=== PATIENT | male | born 1955 | race Caucasian/White ===

== ENCOUNTER 2017-09-28 11:08 | Emergency (ER) | payer MEDICARE, OTHER ==
[~2017-09-28] VITALS: Ht 172.7 cm; Wt 88.7 kg
[~2017-09-28 11:08] MED LIST: ALBU18HF2 INH; BUDE10.2 INH; BUPR150T14 PO; CYCL10TA10 PO; DOCU-28 PO; DONE10TA6 PO; FLUO40CA PO; GABA-532 PO; LISI-600 PO; OXYC15TA88 PO; SIMV40TA PO; SPIIN INH; TEMA30CA5 PO
[2017-09-28] MEDS ORDERED: proparacaine 0.5% ophthalmic drops 15ml EACHEYE ONE (11:50)
[2017-09-28] MEDS ORDERED: benoxinate/fluorescein ophth drops 5ml bottle EACHEYE ONE (12:05)
[2017-09-28] MEDS ORDERED: benoxinate/fluorescein ophth drops 5ml bottle ONE ×2 (12:11→12:18)
[2017-09-28] MEDS ORDERED: TOBR5DRO2 RIGHTEYE (12:18)
[2017-09-28 12:37] VITALS: BP 112/72
== END 2017-09-28 12:25 | disposition home or self-care (01) ==
LOC: ER 11:08
DX: S05.00XA Injury of conjunctiva and corneal abrasion without foreign body, unspecified eye, initial encounter (principal); J44.9 Chronic obstructive pulmonary disease, unspecified; G89.29 Other chronic pain; Z88.8 Allergy status to other drugs, medicaments and biological substances; Z79.899 Other long term (current) drug therapy; X58.XXXA Exposure to other specified factors, initial encounter; Y93.89 Activity, other specified; Y92.89 Other specified places as the place of occurrence of the external cause; Y99.8 Other external cause status
CPT/HCPCS: 99283

== ENCOUNTER 2018-02-09 17:09 | Emergency (ER) | payer MEDICARE, OTHER ==
[~2018-02-09] VITALS: Ht 172.7 cm; Wt 71.2 kg
[~2018-02-09 17:09] MED LIST changes: +TOBR5DRO2 RIGHTEYE
[2018-02-09] MEDS ORDERED: normal saline 1000ML IV soln IVB ONE (17:25)
[2018-02-09 17:35] LABS: BASOPHILS % (AUTO) 0.3 % (0-1); EOSINOPHILS # (AUTO) 0.1 X10'3 (0-0.9); EOSINOPHILS % (AUTO) 1.2 % (0-6); HEMATOCRIT 50.2 % (42.0-52.0); HEMOGLOBIN 17.3 g/dl (14.0-17.9); LYMPHOCYTES # (AUTO) 1.4 X10'3 (1.1-4.8); LYMPHOCYTES % (AUTO) 13.1 % (21-51); MEAN CORPUSCULAR HEMOGLOBIN 30.2 PG (27.0-31.0); MEAN CORPUSCULAR HGB CONC 34.4 % (33.0-36.5); MEAN CORPUSCULAR VOLUME 87.8 FL (78-98); MEAN PLATELET VOLUME 9.1 FL (7.4-10.4); MONOCYTES # (AUTO) 0.5 X10'3 (0-0.9); MONOCYTES % (AUTO) 4.2 % (2-12); NEUTROPHILS # (AUTO) 8.9 X10'3 (1.8-7.7); NEUTROPHILS % (AUTO) 81.2 % (42-75); PLATELET COUNT 247 X10'3 (140-440); RED BLOOD COUNT 5.72 X10'6 (4.70-6.10); RED CELL DISTRIBUTION WIDTH 13.9 % (11.5-14.5); WHITE BLOOD COUNT 10.9 X10'3 (4.5-11.0)
[2018-02-09 17:45] LABS: PARTIAL THROMBOPLASTIN TIME 27 SECONDS (22-32); PROTHROMBIN TIME 10.3 SECONDS (9.0-12.0)
[2018-02-09 17:49] LABS: ALANINE AMINOTRANSFERASE 40 U/L (12-78); ALBUMIN 3.8 G/DL (3.4-5.0); ALKALINE PHOSPHATASE 113 IU/L (46-116); ANION GAP 8 (8-16); ASPARTATE AMINO TRANSFERASE 29 U/L (10-37); BILIRUBIN,TOTAL 0.3 MG/DL (0.1-1.0); BLOOD UREA NITROGEN 29 MG/DL (7-18); BUN/CREATININE RATIO 17.4 (5.4-32.0); CALCIUM 9.2 MG/DL (8.5-10.1); CHLORIDE 98 MMOL/L (99-107); CREATININE 1.67 MG/DL (0.60-1.10); GLUCOSE 143 MG/DL (70-104); POTASSIUM 5.2 MMOL/L (3.5-5.1); SODIUM 134 MMOL/L (135-145); TOTAL CARBON DIOXIDE 28.1 MMOL/L (24-32); TOTAL PROTEIN 7.8 G/DL (6.4-8.2); eGFR 42 ML/MIN
[2018-02-09 18:38] LABS: D-DIMER 0.49 MG/L FEU (0-0.50)
[2018-02-09] MEDS ORDERED: calcium chloride 100 MG/1 ML inj IV ONE (21:45)
[2018-02-09] MEDS ORDERED: sodium bicarbonate (0.9mEq/ml) 44.6 mEq/50ml syringe IV ONE (21:45)
[2018-02-09] MEDS ORDERED: furosemide 40mg/4ml inj IV ONE (21:45)
[2018-02-09] MEDS ORDERED: dextrose 50%-water 50ml dispensing syringe IV ONE (21:45)
[2018-02-09] MEDS ORDERED: insulin regular, human 10 units/0.1 ml syringe IV ONE (21:45)
[2018-02-09] MEDS ORDERED: sodium bicarbonate 1 MEQ/1 ml inj IV ONE (21:50)
[2018-02-09 22:13] VITALS: BP 130/57
== END 2018-02-09 22:17 | disposition home or self-care (01) ==
LOC: ER 17:10
DX: I24.9 Acute ischemic heart disease, unspecified (principal); I47.1 Supraventricular tachycardia; N28.9 Disorder of kidney and ureter, unspecified; E87.5 Hyperkalemia; I10 Essential (primary) hypertension; J44.1 Chronic obstructive pulmonary disease with (acute) exacerbation; E78.00 Pure hypercholesterolemia, unspecified; G89.29 Other chronic pain; Z88.6 Allergy status to analgesic agent; Z79.899 Other long term (current) drug therapy
CPT/HCPCS: 36415; 71045; 80053; 84439; 84443; 84484; 85025; 85379; 85610; 85730; 93005; 99285; J7030

== ENCOUNTER 2019-04-19 11:44 | Emergency (ER) | payer MEDICARE ==
[~2019-04-19] VITALS: Ht 172.7 cm; Wt 81.8 kg
[~2019-04-19 11:44] MED LIST changes: -DONE10TA6 PO; +DONE10TA7 PO
[2019-04-19] MEDS ORDERED: fentaNYL/PF 50MCG/1 ML 2ML syringe IV ONE (12:00)
--- NOTE | 2019-04-19 12:21 | NUR ---
pt to ct via wheelchair with manufacturer
--- NOTE | 2019-04-19 12:26 | NUR ---
Donis garcia in ED - 04/19/19 at 12[email or web address] PER [address] MIR PLACED PT ON LEFT SIDE WITH PEROXIDE IN HIS EAR
[2019-04-19 12:31] LABS: BASOPHILS % (AUTO) 0.4 % (0-1); EOSINOPHILS % (AUTO) 0.4 % (0-6); HEMATOCRIT 40.5 % (42.0-52.0); HEMOGLOBIN 13.9 g/dl (14.0-17.9); LYMPHOCYTES # (AUTO) 0.9 X10'3 (1.1-4.8); LYMPHOCYTES % (AUTO) 14.9 % (21-51); MEAN CORPUSCULAR HEMOGLOBIN 30.4 PG (27.0-31.0); MEAN CORPUSCULAR HGB CONC 34.3 g/dL (33.0-36.5); MEAN CORPUSCULAR VOLUME 88.7 FL (78-98); MEAN PLATELET VOLUME 8.1 FL (7.4-10.4); MONOCYTES # (AUTO) 0.4 X10'3 (0-0.9); MONOCYTES % (AUTO) 6.9 % (2-12); NEUTROPHILS # (AUTO) 4.6 X10'3 (1.8-7.7); NEUTROPHILS % (AUTO) 77.4 % (42-75); PLATELET COUNT 165 X10'3 (140-440); RED BLOOD COUNT 4.56 X10'6 (4.70-6.10); RED CELL DISTRIBUTION WIDTH 13.5 % (11.5-14.5)
[2019-04-19 12:56] LABS: ALANINE AMINOTRANSFERASE 27 U/L (12-78); ANION GAP 10 (8-16); ASPARTATE AMINO TRANSFERASE 17 U/L (10-37); BILIRUBIN,TOTAL 0.4 MG/DL (0.1-1.0); BLOOD UREA NITROGEN 18 MG/DL (7-18); BUN/CREATININE RATIO 15.1 (5.4-32.0); CALCIUM 7.6 MG/DL (8.5-10.1); CHLORIDE 106 MMOL/L (99-107); CREATININE 1.19 MG/DL (0.60-1.10); GLUCOSE 94 MG/DL (70-104); POTASSIUM 3.5 MMOL/L (3.5-5.1); SODIUM 138 MMOL/L (135-145); TOTAL CARBON DIOXIDE 22.4 MMOL/L (24-32); TOTAL PROTEIN 5.9 G/DL (6.4-8.2); eGFR 62 ML/MIN
[2019-04-19 13:01] LABS: ALKALINE PHOSPHATASE 76 IU/L (46-116)
[2019-04-19 13:41] VITALS: BP 107/62
[2019-04-19] MEDS ORDERED: HYDROcodone/acetaminophen 5mg/325mg tablet PO ONE (13:45)
== END 2019-04-19 14:01 | disposition home or self-care (01) ==
LOC: ER 11:45
DX: S00.81XA Abrasion of other part of head, initial encounter (principal); R55 Syncope and collapse; G89.29 Other chronic pain; M54.2 Cervicalgia; E78.00 Pure hypercholesterolemia, unspecified; I10 Essential (primary) hypertension; J43.9 Emphysema, unspecified; Z88.6 Allergy status to analgesic agent; Z79.899 Other long term (current) drug therapy; W18.39XA Other fall on same level, initial encounter; Y93.89 Activity, other specified; Y92.89 Other specified places as the place of occurrence of the external cause; Y99.8 Other external cause status
CPT/HCPCS: 36415; 70450; 71045; 72125; 80053; 84484; 85025; 93005; 96374; 99284; J3010

== ENCOUNTER 2019-07-28 16:39 | Emergency (ER) | payer MEDICARE ==
[~2019-07-28] VITALS: Ht 177.8 cm; Wt 84.0 kg
--- NOTE | 2019-07-28 18:19 | NUR ---
Greeted pt and he fell back to sleep.
[2019-07-28] MEDS ORDERED: BUPR1FIL7 SL (18:25)
[2019-07-28] MEDS ORDERED: METO-395 PO (18:26)
[2019-07-28 18:44] LABS: BASOPHILS % (AUTO) 0.4 % (0-1); EOSINOPHILS # (AUTO) 0.1 X10'3 (0-0.9); EOSINOPHILS % (AUTO) 0.8 % (0-6); HEMATOCRIT 45.2 % (42.0-52.0); HEMOGLOBIN 15.6 g/dl (14.0-17.9); LYMPHOCYTES # (AUTO) 1.1 X10'3 (1.1-4.8); MEAN CORPUSCULAR HEMOGLOBIN 30.3 PG (27.0-31.0); MEAN CORPUSCULAR HGB CONC 34.6 g/dL (33.0-36.5); MEAN CORPUSCULAR VOLUME 87.7 FL (78-98); MEAN PLATELET VOLUME 8.2 FL (7.4-10.4); MONOCYTES # (AUTO) 0.6 X10'3 (0-0.9); MONOCYTES % (AUTO) 7.3 % (2-12); NEUTROPHILS # (AUTO) 6.2 X10'3 (1.8-7.7); NEUTROPHILS % (AUTO) 77.5 % (42-75); PLATELET COUNT 213 X10'3 (140-440); RED BLOOD COUNT 5.16 X10'6 (4.70-6.10); RED CELL DISTRIBUTION WIDTH 14.1 % (11.5-14.5)
[2019-07-28 18:55] LABS: ALANINE AMINOTRANSFERASE 28 U/L (12-78); ALBUMIN 3.5 G/DL (3.4-5.0); ALKALINE PHOSPHATASE 115 IU/L (46-116); ANION GAP 3 (8-16); ASPARTATE AMINO TRANSFERASE 19 U/L (10-37); BILIRUBIN,TOTAL 0.3 MG/DL (0.1-1.0); BLOOD UREA NITROGEN 12 MG/DL (7-18); BUN/CREATININE RATIO 12.9 (5.4-32.0); CALCIUM 8.2 MG/DL (8.5-10.1); CHLORIDE 97 MMOL/L (99-107); CREATININE 0.93 MG/DL (0.60-1.10); GLUCOSE 121 MG/DL (70-104); POTASSIUM 4.2 MMOL/L (3.5-5.1); SODIUM 132 MMOL/L (135-145); TOTAL CARBON DIOXIDE 32.2 MMOL/L (24-32); TOTAL PROTEIN 7.1 G/DL (6.4-8.2); eGFR 82 ML/MIN
--- NOTE | 2019-07-28 19:51 | NUR ---
Pt states he was just up to the BR and so now he can't void.
[2019-07-28] MEDS ORDERED: predniSONE 20 mg tablet PO ONE (20:10)
[2019-07-28] MEDS ORDERED: ipratropium/albuterol 3ml nebule NEB ONE (20:10)
--- NOTE | 2019-07-28 20:33 | NUR ---
pt states his back is hurting, he may need a suboxone.
[2019-07-28] MEDS ORDERED: buprenorphine/naloxone 8MG-2MG SUBlingual film SL SCH (20:40)
[2019-07-28] MEDS ORDERED: AZIT-72 PO (20:45)
[2019-07-28] MEDS ORDERED: PRED20TA PO (20:45)
[2019-07-28 20:58] VITALS: BP 118/81
== END 2019-07-28 21:02 | disposition home or self-care (01) ==
LOC: ER 16:41
DX: J44.1 Chronic obstructive pulmonary disease with (acute) exacerbation (principal); E78.00 Pure hypercholesterolemia, unspecified; I10 Essential (primary) hypertension; J44.9 Chronic obstructive pulmonary disease, unspecified; G89.29 Other chronic pain; F10.99 Alcohol use, unspecified with unspecified alcohol-induced disorder; Z98.890 Other specified postprocedural states; Z88.6 Allergy status to analgesic agent; Z79.899 Other long term (current) drug therapy; Y90.9 Presence of alcohol in blood, level not specified
CPT/HCPCS: 36415; 71046; 80053; 83605; 84484; 85025; 87040; 93005; 94640; 99284; J7512; 94760

== ENCOUNTER 2019-08-01 05:10 | Emergency (ER) | payer MEDICARE ==
[~2019-08-01] VITALS: Ht 177.8 cm; Wt 84.0 kg
[~2019-08-01 05:10] MED LIST changes: +AZIT-72 PO; +BUPR1FIL7 SL; -CYCL10TA10 PO; -DOCU-28 PO; +METO-395 PO; -OXYC15TA88 PO; +PRED20TA PO; -TOBR5DRO2 RIGHTEYE
[2019-08-01 05:46] LABS: CLARITY,URINE CLEAR (Clear); COLOR,URINE YELLOW (Yellow); GLUCOSE, URINE NEGATIVE (Neg); KETONES,URINE TRACE mg/dl (Neg); LEUKOCYTE ESTERASE ,URINE NEGATIVE (Neg); NITRITES, URINE NEGATIVE (Neg); OCCULT BLOOD,URINE NEGATIVE (Neg); PROTEIN,URINE NEGATIVE (Neg); UROBILINOGEN,URINE 0.2 E.U/dL (0.2-1.0)
[2019-08-01 05:51] LABS: BASOPHILS # (AUTO) 0.1 X10'3 (0-0.2); BASOPHILS % (AUTO) 0.4 % (0-1); EOSINOPHILS % (AUTO) 0 % (0-6); HEMATOCRIT 43.3 % (42.0-52.0); HEMOGLOBIN 14.9 g/dl (14.0-17.9); LYMPHOCYTES # (AUTO) 0.9 X10'3 (1.1-4.8); LYMPHOCYTES % (AUTO) 7.9 % (21-51); MEAN CORPUSCULAR HEMOGLOBIN 30.1 PG (27.0-31.0); MEAN CORPUSCULAR HGB CONC 34.5 g/dL (33.0-36.5); MEAN CORPUSCULAR VOLUME 87.3 FL (78-98); MEAN PLATELET VOLUME 8.7 FL (7.4-10.4); MONOCYTES # (AUTO) 0.8 X10'3 (0-0.9); MONOCYTES % (AUTO) 7.1 % (2-12); NEUTROPHILS # (AUTO) 9.8 X10'3 (1.8-7.7); NEUTROPHILS % (AUTO) 84.6 % (42-75); PLATELET COUNT 210 X10'3 (140-440); RED BLOOD COUNT 4.96 X10'6 (4.70-6.10); RED CELL DISTRIBUTION WIDTH 14.6 % (11.5-14.5); WHITE BLOOD COUNT 11.6 X10'3 (4.5-11.0)
[2019-08-01 05:51] LABS: UA COLLECTION TYPE STRAIGHT CATH
[2019-08-01 06:09] LABS: PARTIAL THROMBOPLASTIN TIME 25 SECONDS (22-32)
[2019-08-01 06:12] LABS: ALANINE AMINOTRANSFERASE 51 U/L (12-78); ALBUMIN 3.8 G/DL (3.4-5.0); ALBUMIN/GLOBULIN RATIO 1.1 (1.1-1.5); ALKALINE PHOSPHATASE 96 IU/L (46-116); ANION GAP 12 (8-16); ASPARTATE AMINO TRANSFERASE 65 U/L (10-37); BILIRUBIN,TOTAL 0.6 MG/DL (0.1-1.0); BLOOD UREA NITROGEN 53 MG/DL (7-18); BUN/CREATININE RATIO 20.1 (5.4-32.0); CALCIUM 8.8 MG/DL (8.5-10.1); CHLORIDE 103 MMOL/L (99-107); CREATININE 2.64 MG/DL (0.60-1.10); GLUCOSE 113 MG/DL (70-104); POTASSIUM 4.4 MMOL/L (3.5-5.1); SODIUM 141 MMOL/L (135-145); TOTAL CARBON DIOXIDE 26.2 MMOL/L (24-32); TOTAL PROTEIN 7.4 G/DL (6.4-8.2); eGFR 25 ML/MIN
--- NOTE | 2019-08-01 06:20 | NUR ---
Pt woke up at CT at 0550 with incomprehensible speech and trying to get out of bed, not following commands. pt was placed in restraints at this time.
[2019-08-01 06:27] LABS: URINE AMPHETAMINE SCREEN POSITIVE (Neg); URINE BARBITUATE SCREEN NEGATIVE (Neg); URINE BENZODIAZEPINES SCREEN POSITIVE (Neg); URINE CANNABINOID SCREEN NEGATIVE (Neg); URINE COCAINE SCREEN NEGATIVE (Neg); URINE METHADONE SCREEN NEGATIVE (Neg); URINE OPIATE SCREEN POSITIVE (Neg); URINE PHENCYCLIDINE SCREEN NEGATIVE (Neg)
--- NOTE | 2019-08-01 06:45 | NUR ---
PT WAS SLEEPING, CT ATTEMPTED TO TAKE PT FOR HEAD CT PER ORDERS AND GOT GURNEY DOWN THE VARGAS AND PT SAT UP AND STARTED MUMBLING INCOMPREHENSIVELY, PT PLACED BACK IN ROOM AND RN PLACED ON MONITOR, PT NOT FOLLOWING COMMANDS OR ABLE TO ANSWER QUESTIONS.
[2019-08-01] MEDS ORDERED: etomidate 2mg/ml inj. IV ONE (06:55)
--- NOTE | 2019-08-01 07:36 | NUR ---
PT RESTRAINTS REMOVED DURING CT AND SEDATION, PT HAS GOOD CIRCULATION, AND WILL REAPPLY RESTRAINTS FOLLOWING CT AND SEDATION
--- NOTE | 2019-08-01 07:36 | NUR ---
MODERATE SEDATION PERFORMED OUT AT CT SCAN, RN, RT, DR ANAYA, CYNTHIA PREPARED [employer]ICE TEAM MEMBER AND SECURITY AT BEDSIDE DURING TRANSFER TO CT SCANNER AND DURING CT SCAN.
--- NOTE | 2019-08-01 07:40 | NUR ---
PT TOLERATED MODERATE SEDTION WELL, CT SCAN COMPLETE PER ORDERS
--- NOTE | 2019-08-01 07:56 | NUR ---
PT WOKE UP AND ASKED SPOUSE WHAT HAPPENED, PT ABLE TO ANSWER QUESTIONS, STATED HIS NAME, , AND THAT HE WAS AT HOSPITAL, PT REPORTS LOW BACK PAIN, PT REPORTS CHRONIC LOW BACK PAIN. PT STILL MUTTERING INCOMPREHENSIBLY WHILE LYING IN GURNEY BUT ORIENTS WHEN ASKED QUESTIONS, SECURITY CALL TO BEDSIDE TO REMOVED ALL RESTRAINTS PT FOLLOWING COMMANDS AND IS MORE ALERT, PT PUPILS ARE EQUAL AND REACTIVE TO LIGHT, PT SITTING UP COUGHING AND SPEAKING OCCASSIONALLY
--- NOTE | 2019-08-01 08:32 | NUR ---
SECOND CHEST XRAY BEING DONE PER ORDERS PT WAS MOVING AND UNABLE TO FOLLOW COMMANDS WHEN FIRST XRAY DONE.
--- NOTE | 2019-08-01 08:34 | NUR ---
pt sitting up eating applesauce, pt asking for pain medications, informed pt due to his previously altered over medicated state we would not give any opiates, per dr peace have pt eat and walk and then pt can be discharged home.
--- NOTE | 2019-08-01 09:25 | NUR ---
PT DID NOT WANT TO EAT ANYTHING FROM [facility] AND REPORTED TO STAFF THAT HE JUST WANTS TO GO HOME.
[2019-08-01 09:48] VITALS: BP 131/52
== END 2019-08-01 09:51 | disposition home or self-care (01) ==
LOC: ER 05:10
DX: F15.10 Other stimulant abuse, uncomplicated (principal); F11.90 Opioid use, unspecified, uncomplicated; R41.82 Altered mental status, unspecified; E78.00 Pure hypercholesterolemia, unspecified; I10 Essential (primary) hypertension; J44.9 Chronic obstructive pulmonary disease, unspecified; G89.29 Other chronic pain; Z88.6 Allergy status to analgesic agent; Z79.899 Other long term (current) drug therapy
CPT/HCPCS: 36415; 70450; 71045; 80053; 80305; 81003; 82948; 83605; 84145; 85025; 85610; 85730; 87040; 93005; 99285

== ENCOUNTER 2019-09-21 11:59 | Emergency (ER) | payer MEDICARE ==
[~2019-09-21] VITALS: Ht 172.7 cm; Wt 80.0 kg
[~2019-09-21 11:59] MED LIST changes: -AZIT-72 PO; -PRED20TA PO
[2019-09-21 12:04] VITALS: BP 116/74
[2019-09-21] MEDS ORDERED: ALB0.5UD IH (12:50)
[2019-09-21] MEDS ORDERED: DOXY100C43 PO (12:50)
[2019-09-21] MEDS ORDERED: ALBU8HFA PO (12:50)
[2019-09-21] MEDS ORDERED: ipratropium/albuterol 3ml nebule NEB ONE (12:55)
== END 2019-09-21 13:31 | disposition home or self-care (01) ==
LOC: ER 12:00
DX: J44.1 Chronic obstructive pulmonary disease with (acute) exacerbation (principal); E78.00 Pure hypercholesterolemia, unspecified; I10 Essential (primary) hypertension; G89.29 Other chronic pain; F17.210 Nicotine dependence, cigarettes, uncomplicated; Z88.8 Allergy status to other drugs, medicaments and biological substances; Z79.2 Long term (current) use of antibiotics; Z79.899 Other long term (current) drug therapy; Z72.89 Other problems related to lifestyle; Z98.890 Other specified postprocedural states
CPT/HCPCS: 94640; 94760; 99283; 99406